=== PATIENT | female | born 1970 | race Hispanic/Latino ===

== ENCOUNTER 2024-11-30 05:42 | Emergency (ER) | payer OTHER ==
[~2024-11-30] VITALS: Ht 154.9 cm; Wt 74.4 kg
--- NOTE | 2024-11-30 06:22 | ERN ---
ED Note History of Present Illness Stated Complaint: C/O ABD PAIN WITH N X V Chief Complaint: Abdominal Pain Time Seen by MD: 06:05 Dictation: This is a 54-year-old female who presented to the emergency room with complaints of abdominal pain nausea and vomitings for a few days. no fevers chills. Temperature 98 pulse 105 respirations 20 blood pressure 182/107 pulse oximetry 96% on room air Her chronic medical problems include hypertension and a history of tummy tuck Allergies: Coded Allergies: No Known Allergies (Unverified Allergy, Unknown, 11/30/24) Home Meds Active Scripts Lactobacillus Acidophilus (Acidophilus Probiotic) 500 Million Cell Capsule, 1 CAP PO BID for 10 Days, #20 CAP 0 Refills Prov:MISSY MAC MD 11/30/24 Pantoprazole Sodium (Protonix) 40 Mg Ectab, 1 TAB PO DAILY for 30 Days, #30 TAB 0 Refills Prov:MISSY MAC MD 11/30/24 Past Medical History Past Medical History: Hypertension Surgical History: Hysterectomy, Other Surgical History Other: TUMMY TUCK Family History: Negative Social History: Negative RN Note Reviewed/Agreed w/PFSH: Yes Review of System Dictation Constitutional: Negative for fever,chills, and weight loss Eyes: Negative for injury, pain,redness, and discharge ENT: Negative for injury,pain or swelling Cardiovascular: Negative for chest pain, palpitations, and edema Respiratory: Negative for shortness of breath, cough, and wheezing, Abdomen/GI: Positive for abdominal pain, nausea, vomiting, denied diarrhea, and constipation Back: Negative for injury and pain : Negative for injury, bleeding and discharge MS/Extremity: Negative for injury and deformity Skin: Negative for rash, and discoloration Neuro: Negative for headache, weakness, numbness, tingling, and seizure Psych: Negative for suicide ideation, homicidal ideation, and hallucinations Initial Vital Sign VS Vital Signs Date Time Temp Pulse Resp B/P (MAP) Pulse Ox O2 Delivery O2 Flow Rate FiO2 11/30/24 05:46 98.1 105 20 182/107 96 Room Air 11/30/24 08:54 0 21 Physical Exam Dictation General: awake, alert, NAD Head/Face: Normocephalic, atraumatic Eyes: PERRL, EOMI, vision at baseline ENT: oral cavity clear, TMs clear, no signs of infection Neck: Trachea midline, supple, no nuchal rigidity Cardiovascular: RRR, normal S1/S2, No MRGs, no JVD Respiratory: CTAB, no respiratory distress, No rales or wheezes Abdomen: Soft, non-tender, non-distended, normal bowel sounds, no guarding or rebound. Skin: Warm, dry, normal turgor, no rash MS/Extremity: Pulses equal, no cyanosis, neurovascular intact, FROM Neuro: COAx4, GCS 15, strength 5/5, CN 2-12 intact, normal cerebellar exam, normal gait, Psych: Normal behavior, mood, and affect normal Extremities-trace edema without any palpable cords, Homans sign is negative Results (Laboratory/Radiology) Laboratory/Radiology Laboratory Tests Test 11/30/24 05:53 11/30/24 06:15 Urine Color COLORLESS (YELLOW) Urine Appearance CLEAR (CLEAR) Urine pH 7.0 (5.0-8.0) Urine Specific [place] 1.012 (1.001-1.031) Urine Protein NEGATIVE mg/dL (NEGATIVE) Urine Glucose (UA) NEGATIVE mg/dL (NEGATIVE) Urine Ketones 5 mg/dL (NEGATIVE) H Urine Occult Blood NEGATIVE (NEGATIVE) Urine Nitrate NEGATIVE (NEGATIVE) Urine Bilirubin NEGATIVE mg/dL (NEGATIVE) Urine Urobilinogen 0.2 mg/dL (0.2-1.0) Urine Leukocyte Esterase NEGATIVE Minerva/uL Urine RBC 2-5 /HPF (0-1) H Urine WBC 2-5 /HPF (0-1) H Urine Squamous Epithelial Cells Rare /HPF (0-2) Urine Bacteria None Seen /HPF (None Seen) White Blood Count 10.4 K/uL (4.8-10.8) Red Blood Count 4.73 MIL/uL (4.00-5.50) Hemoglobin 14.3 g/dL (12.0-16.0) Hematocrit 42.2 % (36-48) Mean Corpuscular Volume 89.2 fL (79-99) Mean Corpuscular Hemoglobin 30.2 pg (27.0-33.0) Mean Corpuscular Hemoglobin Concent 33.9 g/dL (32.0-36.0) Red Cell Distribution Width 12.8 % (11.0-15.5) Platelet Count 263 K/uL (130-400) Mean Platelet Volume 10.8 fL (7.5-10.5) H Immature Granulocyte % (Auto) 0.5 % (0-1) Neutrophils (%) (Auto) 64.2 % (40.0-77.0) Lymphocytes (%) (Auto) 27.9 % (21.0-51.0) Monocytes (%) (Auto) 6.2 % (3.0-13.0) Eosinophils (%) (Auto) 0.6 % (0.0-8.0) Basophils (%) (Auto) 0.6 % (0.0-5.0) Neutrophils # (Auto) 6.7 K/uL (1.8-7.7) Lymphocytes # (Auto) 2.9 K/uL (1.0-4.8) Monocytes # (Auto) 0.6 K/uL (0.1-1.0) Eosinophils # (Auto) 0.06 K/uL (0.00-0.70) Basophils # (Auto) 0.06 K/uL (0.00-0.20) Absolute Immature Granulocyte (auto 0.05 K/uL (0-1) Nucleated Red Blood Cells 0.0 % (0.0-0.19) Sodium Level 139 mmol/L (136-145) Potassium Level 3.6 mmol/L (3.5-5.1) Chloride Level 102 mmol/L (101-111) Carbon Dioxide Level 27 mmol/L (21-32) Blood Urea Nitrogen 7 mg/dL (7-18) Creatinine 0.6 mg/dL (0.5-1.0) Glomerular Filtration Rate Calc 108 mL/min (>90) Random Glucose 104 mg/dL (70-105) Total Calcium 8.9 mg/dL (8.5-10.1) Total Bilirubin 0.3 mg/dL (0.2-1.0) Direct Bilirubin 0.1 mg/dL (0.0-0.3) Aspartate Amino Transf (AST/SGOT) 14 U/L (10-37) Alanine Aminotransferase (ALT/SGPT) 23 U/L (12-78) Alkaline Phosphatase 90 U/L (50-136) Total Protein 8.0 g/dL (6.0-8.3) Albumin 4.1 g/dL (3.5-5.0) Lipase 45 U/L (16-77) Labs Reviewed?: Yes ED Course ED Course Orders Procedure Category Date Status Time Vital Signs Per CPOE 11/30/24 Transmitted Routine 05:57 Saline Lock Iv CPOE 11/30/24 Transmitted 05:57 Cbc With Differential LAB 11/30/24 Complete 05:57 Lipase LAB 11/30/24 Complete 05:57 Urinalysis Profile LAB 11/30/24 Complete 05:57 Basic Metabolic Panel LAB 11/30/24 Complete 05:57 Lactated Ringers PHA 11/30/24 Complete 1000ml (Lactated 06:30 Ondansetron 4mg Inj PHA 11/30/24 Complete (Zofran 4mg Inj) 06:30 Hepatic Function Panel LAB 11/30/24 Complete 07:07 Lidocaine Hcl 2% PHA 11/30/24 Complete Viscous (Lidocaine Hcl 08:00 Mag/Alum/Simeth 30ml PHA 11/30/24 Complete (Maalox Plus 30ml) 08:00 Pantoprazole 40mg Inj PHA 11/30/24 Complete (Protonix 40mg Inj 08:00 Acetaminophen 500mg PHA 11/30/24 Complete Tab (Tylenol 500mg T 08:00 12 Lead Ekg Tracing- EKG 11/30/24 Complete Technical 06:53 Current Medications Medications (Trade) Dose Ordered Sig/Greg Route PRN Reason Start Time Stop Time Status Last Admin Dose Admin Acetaminophen (TYLenol 500MG TAB) 1,000 mg ONCE ONCE PO 11/30/24 08:00 11/30/24 08:01 DC 11/30/24 07:59 Al Hydroxide/Mg Hydroxide (MAALox PLUS 30ML) 30 ml ONCE ONCE PO 11/30/24 08:00 11/30/24 08:01 DC 11/30/24 07:59 Lactated Ringer's (Lactated Ringers 1000ml) 1,000 ml BOLUS ONCE IV 11/30/24 06:30 11/30/24 06:31 DC 11/30/24 06:30 Lidocaine HCl (Lidocaine HCl 2% Viscous) 10 ml ONCE ONCE PO 11/30/24 08:00 11/30/24 08:01 DC 11/30/24 07:59 Ondansetron HCl (zoFRAN 4MG INJ) 4 mg ONCE ONCE IVP 11/30/24 06:30 11/30/24 06:31 DC 11/30/24 06:29 Pantoprazole Sodium (PROTonix 40MG INJ) 40 mg ONCE ONCE IVP 11/30/24 08:00 11/30/24 08:01 DC 11/30/24 07:59 Vital Signs Date Time Temp Pulse Resp B/P (MAP) Pulse Ox O2 Delivery O2 Flow Rate FiO2 11/30/24 08:54 98.2 76 17 157/96 99 Room Air* 0 21 11/30/24 05:46 98.1 105 20 182/107 96 Room Air We will perform diagnostic labs, advanced imaging and administer medications according to the patient's complaint. Once the results are available, will review and personally interpreted the labs to rule out any acute life-threatening emergency the trach require immediate intervention and treatment. I will then re-evaluate the patient after treatment and diagnostic exams have return to determine whether the patient requires any further testing, can safely be discharged home or need further admission to hospital for additional treatment and evaluation. Medical Decision Making MDM The differential diagnosis entertained at this time includes--gastroenteritis, gastritis, cholecystitis, renal colic, diverticulitis, enterocolitis A full comprehensive workup will be performed to identify the underlying problem. The patient will be monitored closely throughout the emergency department stay. The disposition will depend on the workup results and frequent re-evaluations PATIENT WAS RE-EVALUATED AFTER LABORATORY WORKUP WAS PERFORMED. PATIENT WAS GIVEN A GI COCKTAIL STATES HE FEELS BETTER WE WILL BE DISCHARGED IN STABLE CONDITION. Problem List Problem List: (1) Gastroenteritis (2) Food poisoning DX & DISP Disposition: Discharge Departure Impression: Primary Impression: Gastroenteritis Additional Impression: Food poisoning Condition: Stable Scripts Lactobacillus Acidophilus (Acidophilus Probiotic) 500 Million Cell Capsule 1 CAP PO BID for 10 Days, #20 CAP 0 Refills Prov: MISSY MAC MD 11/30/24 Pantoprazole Sodium (Protonix) 40 Mg Ectab 1 TAB PO DAILY for 30 Days, #30 TAB 0 Refills Prov: MISSY MAC MD 11/30/24 Additional Instructions: FOLLOW-UP WITH PRIMARY CARE PROVIDER IN 1 TO 2 DAYS. TAKE MEDICATIONS DIR ECTED HERE IN THE EMERGENCY ROOM. OKAY TO CONTINUE HOME MEDICATIONS UNLESS OTHERWISE DISCUSSED DURING YOUR VISIT IN THE EMERGENCY ROOM TODAY. RETURN TO YOUR NEAREST EMERGENCY ROOM IF SYMPTOMS WORSEN OR IF THERE IS NO IMPROVEMENT. CALL 911 IF YOU NEED IMMEDIATE ASSISTANCE. TAKE TYLENOL [id number] NEEDED AND IF NO CONTRAINDICATIONS ARE PRESENT. INCREASE ORAL HYDRATION. A WOUND CULTURE OR URINE CULTURE WAS ORDERED HERE IN THE EMERGENCY ROOM DEPARTMENT PLEASE FOLLOW-UP WITH PRIMARY CARE PROVIDER AND ADVISE THEM TO GET REPEAT PORTS FROM OUR FACILITY. IF YOU HAD ANY SALVADOR WRAP/SPLINTS THAT WERE APPLIED HERE, PLEASE DO NOT REMOVE THEM UNTIL YOU SEE YOUR PRIMARY CARE OR SPECIALTY. REFERRALS: Referrals: SELF,REFERRAL (PCP) FELIX WINSTON MD Time of Disposition: 08:09 KATELYN BARRETT MD Nov 30, 2024 06:22 MISSY MAC MD Nov 30, 2024 08:14
[2024-11-30] MEDS: ondanSETRON 4MG INJ IVP ONE (06:29)
[2024-11-30] MEDS: LACTATED RINGERS 1000ML IV ONE (06:30)
[2024-11-30 06:33] LABS: APPEARANCE,URINE CLEAR (CLEAR); BILIRUBIN,URINE NEGATIVE (NEGATIVE); COLOR,URINE COLORLESS (YELLOW); GLUCOSE, URINE (UA) NEGATIVE (NEGATIVE); KETONES,URINE 5 mg/dL (NEGATIVE); LEUKOCYTE ESTERASE ,URINE NEGATIVE Leu/uL (NEGATIVE); NITRATE,URINE NEGATIVE (NEGATIVE); OCCULT BLOOD,URINE NEGATIVE (NEGATIVE); PROTEIN,URINE NEGATIVE (NEGATIVE); UROBILINOGEN,URINE 0.2 mg/dL (0.2-1.0)
[2024-11-30 06:48] LABS: BASOPHILS # (AUTO) 0.06 K/uL (0.00-0.20); BASOPHILS % (AUTO) 0.6 % (0.0-5.0); EOSINOPHILS # (AUTO) 0.06 K/uL (0.00-0.70); EOSINOPHILS % (AUTO) 0.6 % (0.0-8.0); HEMATOCRIT 42.2 % (36-48); IMMATURE GRANULOCYTE ABSOLUTE 0.05 K/uL (0-1); LYMPHOCYTES # (AUTO) 2.9 K/uL (1.0-4.8); LYMPHOCYTES % (AUTO) 27.9 % (21.0-51.0); MEAN CORPUSCULAR HEMOGLOBIN 30.2 pg (27.0-33.0); MEAN CORPUSCULAR HGB CONC 33.9 g/dL (32.0-36.0); MEAN CORPUSCULAR VOLUME 89.2 fL (79-99); MONOCYTES # (AUTO) 0.6 K/uL (0.1-1.0); MONOCYTES % (AUTO) 6.2 % (3.0-13.0); NEUTROPHILS # (AUTO) 6.7 K/uL (1.8-7.7); NEUTROPHILS % (AUTO) 64.2 % (40.0-77.0); PLATELET COUNT (AUTO) 263 K/uL (130-400); RED BLOOD CELL COUNT(AUTO) 4.73 MIL/uL (4.00-5.50); RED CELL DISTRIBUTION WIDTH 12.8 % (11.0-15.5); WHITE BLOOD COUNT (AUTO) 10.4 K/uL (4.8-10.8)
[2024-11-30 06:58] LABS: CREATININE 0.6 mg/dL (0.5-1.0); POTASSIUM 3.6 mmol/L (3.5-5.1)
--- NOTE | 2024-11-30 07:15 | NUR ---
ASSUMED CARE AT THIS TIME.
[2024-11-30 07:16] LABS: ADD UA MICROSCOPIC YES
[2024-11-30 07:26] LABS: ALBUMIN 4.1 g/dL (3.5-5.0); BILIRUBIN,DIRECT 0.1 mg/dL (0.0-0.3); BILIRUBIN,TOTAL 0.3 mg/dL (0.2-1.0)
[2024-11-30 07:30] LABS: BACTERIA,URINE None Seen /HPF (None Seen); MUCUS,URINE Rare LPF (None Seen); SQUAMOUS EPITHELIAL CELL,UR Rare /HPF (0-2)
--- NOTE | 2024-11-30 07:38 | NUR ---
PT WAS ASSISTED OOB TO BR TO VOID. PT STATES SHE STILL HAS SOME NAUSEA ONLY. SHE WAS ABLE TO AMBULATE TO AND FROM THE STRETCHER.
[2024-11-30] MEDS: LIDOCAINE HCL 2% VISCOUS 15 ML UDCUP PO ONE (07:59)
[2024-11-30] MEDS: MAG/ALUM/SIMETH 30 ML UDCUP PO ONE (07:59)
[2024-11-30] MEDS: PANTOPrazole 40 MG/VIAL IVP ONE (07:59)
[2024-11-30] MEDS: acetaMINOPHEN 500 MG TABLET PO ONE (07:59)
[2024-11-30] MEDS ORDERED: PANT40TA55 PO (08:14)
[2024-11-30] MEDS ORDERED: LACT-356 PO (08:14)
[2024-11-30 08:54] VITALS: BP 157/96; PULSE 76; RESP 17; TEMP 98.3; O2SAT 99
--- NOTE | 2024-11-30 08:55 | NUR ---
20G REMOVED FROM R AC INTACT. WAS NOT DOCUMENTED ON IV DOCUMENTATION SITE
--- NOTE | 2024-11-30 11:25 | EKG ---
[facility] Test Date: 2024-11-30 Test Time: 06:53:25 Pat Name: ERAN SARMIENTO Department: [facility] Room: Gender: F [employer] Affairs Manager: [id number] : 1970 Requested By: MISSY MAC Order Number: [id number] Reading MD: Gigi Bhat Measurements Intervals Mercer Rate: 78 P: 70 DC: 152 QRS: 6 QRSD: 88 T: 12 QT: 368 QTc: 420 Interpretive Statements Sinus rhythm Low voltage, precordial leads No previous ECG available for comparison Electronically Signed On 12-01-2024 20:30:23 CDT by Gigi Bhat Please click the below link to view image of tracing.
== END 2024-11-30 08:57 | disposition home or self-care (01) ==
LOC: EDH 05:42
DX: K52.9 Noninfective gastroenteritis and colitis, unspecified (principal); A05.9 Bacterial foodborne intoxication, unspecified; I10 Essential (primary) hypertension; Z79.899 Other long term (current) drug therapy; Z90.710 Acquired absence of both cervix and uterus
CPT/HCPCS: 99284; 96374; 96375; 80076; 80048; 83690; 85025; 81001; 36415; 93005; J7120; J2405; J2470